=== PATIENT | male | born 1935 | race Caucasian/White ===

== ENCOUNTER 2017-08-01 19:50 | Inpatient (IN) | payer OTHER ==
[2017-08-01] MEDS: ASPIRIN 81 MG TAB PO (20:15)
[2017-08-01] MEDS: ONDANSETRON 4 MG INJ IV (20:15)
[2017-08-01 20:20] LABS: ADD MAN DIFF? NO
[2017-08-01 20:21] LABS: WHITE BLOOD COUNT 7.9 10^3/ul (4.8-10.8)
[2017-08-01 20:21] LABS: BASOPHILS % 0.4 % (0.0-2.0); EOSINOPHILS # 0.1 10^3/ul (0.0-0.5); EOSINOPHILS % 0.8 % (0.0-7.0); HEMATOCRIT 36.1 % (42.0-52.0); HEMOGLOBIN 12.2 g/dl (14.0-18.0); LYMPHOCYTES # 2.2 10^3/ul (0.8-2.9); LYMPHOCYTES % 27.8 % (15.0-51.0); MEAN CORPUSCULAR HEMOGLOBIN 32.6 pg (29.0-33.0); MEAN CORPUSCULAR HGB CONC 33.8 g/dl (32.0-37.0); MEAN CORPUSCULAR VOLUME 96.5 fl (82.0-101.0); MEAN PLATELET VOLUME 10.8 fl (7.4-10.4); MONOCYTE # 0.8 10^3/ul (0.3-0.9); MONOCYTES % 10.7 % (0.0-11.0); NEUTROPHIL # 4.7 10^3/ul (1.6-7.5); PLATELET COUNT 148 10^3/UL (140-415); RED BLOOD COUNT 3.74 10^6/ul (4.70-6.10); RED CELL DISTRIBUTION WIDTH 13.2 % (11.5-14.5)
[2017-08-01 20:40] LABS: ALANINE AMINOTRANSFERASE 68 IU/L (13-69); ALBUMIN 3.3 g/dl (3.3-4.9); ALBUMIN/GLOBULIN RATIO 1.03; ALKALINE PHOSPHATASE 81 IU/L (42-121); ANION GAP 15 (8-16); ASPARTATE AMINO TRANSFERASE 44 IU/L (15-46); BILIRUBIN,INDIRECT 0.2 mg/dl (0-1.1); BILIRUBIN,TOTAL 0.2 mg/dl (0.2-1.3); BLOOD UREA NITROGEN 19 mg/dl (7-20); CALCIUM 8.2 mg/dl (8.4-10.2); CARBON DIOXIDE 25 mmol/L (21-31); CHLORIDE 107 mmol/L (97-110); CREATININE 1.31 mg/dl (0.61-1.24); GLUCOSE 143 mg/dl (70-220); LIPASE 82 U/L (23-300); POTASSIUM 4.6 mmol/L (3.5-5.1); SODIUM 142 mmol/L (135-144); TOTAL PROTEIN 6.5 g/dl (6.1-8.1)
[2017-08-01 20:41] LABS: INR 0.96; PROTIME 12.9 Sec (11.9-14.9)
[2017-08-01 20:42] LABS: PARTIAL THROMBOPLASTIN TIME 39.4 Sec (25.0-35.0)
[2017-08-01] MEDS: FUROSEMIDE 40 MG INJ IV (20:47)
[2017-08-01 20:52] LABS: B-TYPE NATRIURETIC PEPTIDE 9360 PG/ML (0-450)
[2017-08-02 02:36] LABS: CREATINE KINASE 137 IU/L (23-200)
[2017-08-02 02:50] LABS: CK INDEX 4.5
[2017-08-02 03:02] LABS: CK-MB 6.23 ng/ml (0.0-2.4)
[2017-08-02] MEDS: NITROGLYCERIN (SL) 0.4 MG TAB SL ×4 (03:03→22:44)
[2017-08-02] MEDS: SOD CHLORIDE 0.9% 500 ML IV (03:11)
[2017-08-02] MEDS: ENOXAPARIN 80 MG/0.8 ML SYG SC ×3 (03:45→21:43)
[2017-08-02 07:18] LABS: CREATINE KINASE 149 IU/L (23-200)
[2017-08-02 07:21] LABS: CK INDEX 4.8
[2017-08-02 07:22] LABS: CK-MB 7.22 ng/ml (0.0-2.4)
[2017-08-02] MEDS ORDERED: GLUCOSE GEL 15 GRAM TUBE PO ×2 (07:30)
[2017-08-02] MEDS ORDERED: GLUCAGON 1 MG INJ IM (07:30)
[2017-08-02] MEDS ORDERED: DEXTROSE 50% 50 ML SYRINGE IV ×2 (07:30)
[2017-08-02] MEDS ORDERED: GLUCOSE GEL 15 GRAM TUBE BUCCAL (07:30)
[2017-08-02] MEDS: DEXTROSE 5%-0.45% NACL 1,000 ML IV (07:40)
[2017-08-02] MEDS: LEVOFLOXACIN 500MG/D5W (PMX) 100 ML IVPB (07:40)
[2017-08-02] MEDS: FUROSEMIDE 20 MG INJ IV ×2 (07:44→16:53)
[2017-08-02] MEDS: ASPIRIN (EC) 81 MG TAB PO (08:35)
[2017-08-02] MEDS: INSULIN ASPART [NOVOLOG] 3 ML PEN SC ×4 (09:02→21:00)
[2017-08-02 10:43] LABS: AADO2 Arterial 143.4 mmHg (7.0-24.0); Allen Test ACCEPTAB; Arterial Base Excess -0.1 mmol/L (-3.0-3); Arterial Blood Gas Oxygen Sat 94.3 mmHG (95.0-100.0); Arterial COHb 0.3 % (0.0-3.0); Arterial Fraction of Oxyhgb 93.9 % (93.0-99.0); Arterial HCO3 23.5 mmol/L (22.0-26.0); Arterial MetHb 0.1 % (0.0-1.5); Arterial Total Hemglobin 14.3 g/dl (12.0-18.0); Arterial pCO2 35.4 mmhg (35-45); MODE NASAL CANNULA; Site Right Radial
[2017-08-02] MEDS: NICOTINE (21 MG/24 HR) PATCH TRANSDERM (10:50)
[2017-08-02] MEDS: morphine 2 MG INJ IV (17:12)
[2017-08-02] MEDS: ONDANSETRON 4 MG INJ IV (20:11)
[2017-08-02] MEDS: ATORVASTATIN 10 MG TAB PO (21:36)
[2017-08-02] MEDS: INSULIN GLARGINE [LANtus] 3 ML PEN SC (21:47)
[2017-08-03] MEDS: NITROGLYCERIN (SL) 0.4 MG TAB SL (01:25)
[2017-08-03 01:51] LABS: AADO2 Arterial 395.2 mmHg (7.0-24.0); Allen Test ACCEPTAB; Arterial Base Excess -5.8 mmol/L (-3.0-3); Arterial Blood Gas Oxygen Sat 98.6 mmHG (95.0-100.0); Arterial COHb 0 % (0.0-3.0); Arterial Fraction of Oxyhgb 98.4 % (93.0-99.0); Arterial HCO3 18.8 mmol/L (22.0-26.0); Arterial MetHb 0.2 % (0.0-1.5); Arterial Total Hemglobin 14.6 g/dl (12.0-18.0); Arterial pCO2 34.4 mmhg (35-45); MODE SIMPLE MASK; Site Right Radial
[2017-08-03] MEDS: ACCU-CHEK XX (02:24)
[2017-08-03] MEDS ORDERED: NA BICARBONATE 8.4% 50 ML SYG (04:21)
[2017-08-03] MEDS ORDERED: EPINEPHRINE 4 MG in NS 250 ML IV (04:30)
[2017-08-03] MEDS ORDERED: INSULIN ASPART [NOVOLOG] 3 ML PEN SC (07:35)
== END 2017-08-03 04:39 | disposition expired | DRG 292 ==
LOC: ICU 08-03 02:05 → E/R 19:50 → TEL 21:28
PROC: 0BH17EZ Insertion of Endotracheal Airway into Trachea, Via Natural or Artificial Opening (ICD-10-PCS; principal; 2017-08-03)
PROC: 5A1935Z Respiratory Ventilation, Less than 24 Consecutive Hours (ICD-10-PCS; 2017-08-03)
PROC: 5A12012 Performance of Cardiac Output, Single, Manual (ICD-10-PCS; 2017-08-03)
DX: I50.41 Acute combined systolic (congestive) and diastolic (congestive) heart failure (principal); N17.9 Acute kidney failure, unspecified; I42.9 Cardiomyopathy, unspecified; R00.1 Bradycardia, unspecified; E11.9 Type 2 diabetes mellitus without complications; I11.0 Hypertensive heart disease with heart failure; E78.5 Hyperlipidemia, unspecified; I25.10 Atherosclerotic heart disease of native coronary artery without angina pectoris; F17.210 Nicotine dependence, cigarettes, uncomplicated; N40.0 Benign prostatic hyperplasia without lower urinary tract symptoms; Z79.4 Long term (current) use of insulin; I49.01 Ventricular fibrillation
CPT/HCPCS: 31500; 36415; 36600; 71045; 80053; 82550; 82553; 82803; 82962; 83690; 83880; 84484; 85025; 85610; 85730; 92950; 93005; 93306; 94660; 96374; 96375; 99291-25